=== PATIENT | male | born 1935 | race Caucasian/White ===

== ENCOUNTER → 2017-01-27 | Outpatient (CLI) | payer MEDICARE, BC | END | disposition home or self-care (01) | LOC: PCVCCLINIC 10:22 | PROVIDERS: ATTEND Internal Medicine Cardiovascular Disease | DX: I10 Essential (primary) hypertension (principal); E78.00 Pure hypercholesterolemia, unspecified; I48.92 Unspecified atrial flutter; R55 Syncope and collapse; I48.91 Unspecified atrial fibrillation; E13.9 Other specified diabetes mellitus without complications; R00.1 Bradycardia, unspecified | CPT/HCPCS: 80061; 93005; G0463 ==

== ENCOUNTER → 2017-11-18 | Outpatient (CLI) | payer MEDICARE, BC | END | disposition home or self-care (01) | LOC: PCVCCLINIC 10:44 | DX: I48.91 Unspecified atrial fibrillation (principal); I10 Essential (primary) hypertension; E78.00 Pure hypercholesterolemia, unspecified; R00.1 Bradycardia, unspecified; R94.31 Abnormal electrocardiogram [ECG] [EKG]; Z87.891 Personal history of nicotine dependence; Z79.899 Other long term (current) drug therapy | CPT/HCPCS: 80061; 93005; G0463 ==

== ENCOUNTER → 2018-08-20 | Outpatient (CLI) | payer MEDICARE, BC ==
--- NOTE | 2018-08-20 12:12 | PCVCIMAG ---
APPROVED REPORT Study performed: 08/20/2018 10:21:06 EXAM: Comprehensive 2D, Doppler, and color-flow Echocardiogram Patient Location: Echo lab Room #: 2Status: routine BSA: 2.05 HR: 45 bpmBP: 154/68 mmHg Rhythm: Bradycardia Other Information Study Quality: Adequate Risk Factors: Cardiac Risk Factors: HTN, Hyperlipidemia Indications Atrial Fibrillation Hypertension/HDD 2D Dimensions IVSd: 8.13 (7-11mm)LVOT Diam: 20.14 (18-24mm) LVDd: 52.86 mm PWd: 7.17 (7-11mm)Ascending Ao: 38.24 (22-36mm) LVDs: 27.44 (25-40mm) Left Atrium: 41.34 (27-40mm) Aortic Root: 23.17 mm LV Single Plane 4CH: 60.50 % LV Single Plane 2CH: 68.80 % Biplane EF: 67.4 % Volumes Left Atrial Volume (Systole) Single Plane 4CH: 71.80 mLSingle Plane 2CH: 71.99 mL Biplane LA Volume: 73.00 mLLA ESV Index: 36.00 mL/m2 Aortic Valve AoV Peak Prabhjot.: 1.42 m/s AO Peak Gr.: 8.46 mmHgLVOT Max P.56 mmHg LVOT Max V: 0.80 m/s ADRIÁN Vmax: 1.79 cm2 AI Vmax: 4.36 m/s AI [place]: 1.89 m/s2 AI PHT: 689.90 ms Mitral Valve E/A Ratio: 1.0 MV Decel. Time: 245.00 ms MV E Max Prabhjot.: 0.59 m/s MV A Prabhjot.: 0.60 m/s IVRT: 143.02 ms Pulmonary Valve PV Peak Prbahjot.: 0.56 m/sPV Peak Gr.: 1.25 mmHg Pulmonary Vein P Vein S: 0.71 m/sP Vein A: 0.42 m/s P Vein D: 0.67 m/sP Vein A Dur.: 143.0 msec P Vein S/D Ratio: 1.06 Tricuspid Valve TR Peak Prabhjot.: 2.63 m/s TR Peak Gr.: 27.70 mmHg TV Vmax: 0.58 m/sPA Pressure: 35.00 mmHg Left Ventricle The left ventricle is normal size. There is normal LV segmental wall motion. There is normal left ventricular wall thickness. Left ventricular systolic function is normal. The left ventricular ejection fraction is within the normal range. LVEF is 65-70%. The left ventricular diastolic function is normal. Right Ventricle The right ventricle is normal size. The right ventricular systolic function is normal. Atria Left atrium is mildly dilated. The right atrium size is normal. Aortic Valve Aortic valve is trileaflet. Mild aortic valve sclerosis. Mild to moderate aortic regurgitation. There is no aortic valvular stenosis. Mitral Valve The mitral valve is normal in structure. There is no mitral valve regurgitation noted. No evidence of mitral valve stenosis. Tricuspid Valve The tricuspid valve is normal in structure. Mild tricuspid regurgitation with a PA pressure of 35 mmHg Mild pulmonary hypertension.. Pulmonic Valve The pulmonary valve is normal in structure. There is no pulmonic valvular regurgitation. Great Vessels The aortic root is normal in size. The ascending aorta is normal in size. Aortic arch is normal in caliber. IVC is normal in size and collapses >50% with inspiration. Pericardium There is no pericardial effusion. There is no pleural effusion. <Conclusion> The left ventricle is normal size. LVEF is 65-70%. The left ventricular diastolic function is normal. The right ventricle is normal size. Left atrium is mildly dilated. The right atrium size is normal. Aortic valve is trileaflet. Mild aortic valve sclerosis. Mild to moderate aortic regurgitation. There is no mitral valve regurgitation noted. Mild tricuspid regurgitation with a PA pressure of 35 mmHg Mild pulmonary hypertension.. The aortic root is normal in size. There is no pericardial effusion.
== END | disposition home or self-care (01) ==
LOC: PCVCIMAG 10:10
PROVIDERS: ATTEND Internal Medicine Cardiovascular Disease
DX: I07.1 Rheumatic tricuspid insufficiency (principal); I48.0 Paroxysmal atrial fibrillation; I10 Essential (primary) hypertension; E78.00 Pure hypercholesterolemia, unspecified; E03.9 Hypothyroidism, unspecified; Z87.891 Personal history of nicotine dependence; Z79.899 Other long term (current) drug therapy
CPT/HCPCS: 80061; 93005; 93306; G0463

== ENCOUNTER → 2019-05-17 | Outpatient (CLI) | payer MEDICARE, BC | END | disposition home or self-care (01) | LOC: PCVCCLINIC 12:02 | PROVIDERS: ATTEND Internal Medicine Cardiovascular Disease | DX: R00.1 Bradycardia, unspecified (principal); E78.00 Pure hypercholesterolemia, unspecified; I48.0 Paroxysmal atrial fibrillation; D68.59 Other primary thrombophilia | CPT/HCPCS: 36415; 80061; 93005; G0463 ==